=== PATIENT | male | born 1955 | race Two or more races ===

== ENCOUNTER 2017-05-22 15:23 | Emergency (ER) | payer OTHER ==
[~2017-05-22] VITALS: Ht 162.6 cm; Wt 68.0 kg
[2017-05-22 15:58] VITALS: BP 163/107
== END 2017-05-22 17:54 | disposition left against medical advice (07) ==
LOC: ER 15:37
DX: M79.602 Pain in left arm (principal); Z53.21 Procedure and treatment not carried out due to patient leaving prior to being seen by health care provider